=== PATIENT | female | born 1970 | race Caucasian/White ===

== ENCOUNTER 2017-04-05 12:02 | Emergency (ER) | payer MEDICAID ==
[~2017-04-05] VITALS: Ht 165.1 cm; Wt 79.0 kg
[2017-04-05 12:03] VITALS: Ht 165.1 cm; Wt 79.0 kg
--- NOTE | 2017-04-05 12:41 | ERD ---
ER Documentation Chief Complaint Chief Complaint BACK PAIN X 1 DAY HPI The patient is a 47-year-old female, presenting to the ER because of left lower back pain that began last night, she has similar symptoms previously. The pain is worse with movement. She denies fever, chills, neck pain, chest pain, vomiting, dysuria, diarrhea. She does not smoke nor drink. She is awaiting to see a general surgeon for elective cholecystectomy after she was seen on March 28 2017 at [facility] Past medical history: Cholelithiasis, anemia, anxiety, GERD, insomnia Past surgical history: Bladder surgery ROS All systems reviewed and are negative except as per history of present illness. Medications Home Meds Active Scripts Tramadol HCl (Tramadol HCl) 50 Mg Tablet, 50 MG PO Q6, #10 TAB Prov:RADHA SUGGS MD 04/05/17 Tramadol HCl (Tramadol HCl) 50 Mg Tablet, 50 MG PO Q6 Y for PAIN, #10 TAB Prov:RADHA SUGGS MD 04/05/17 Tramadol HCl (Tramadol HCl) 50 Mg Tablet, 50 MG PO Q6, #10 TAB Prov:RADHA SUGGS MD 04/05/17 Physical Exam Vitals Vital Signs Date Time Temp Pulse Resp B/P Pulse Ox O2 Delivery O2 Flow Rate FiO2 04/05/17 12:03 98.5 77 18 136/72 100 Physical Exam Const: No acute distress. Head: Atraumatic. Eyes: Normal Conjunctiva. ENT: Normal External Ears, Nose and Mouth. Neck: Full range of motion. No meningismus. Resp: Clear to auscultation bilaterally. Cardio: Regular rate and rhythm. Abd: Soft, non distended, normal bowel sounds, non tender. Skin: No petechiae or rashes. Back: No midline or flank tenderness. Ext: No cyanosis, or edema. Neur: Awake and alert. No focal deficit Psych: Normal Mood and Affect. Results 24 hrs Laboratory Tests Test 04/05/17 13:10 Bedside Urine pH (LAB) 6.0 Bedside Urine Protein (LAB) Negative Bedside Urine Glucose (UA) Negative Bedside Urine Ketones (LAB) Negative Bedside Urine Blood Trace-lysed Bedside Urine Nitrite (LAB) Negative Bedside Urine Leukocyte Esterase (L Negative Current Medications Medications (Trade) Dose Ordered Sig/Odilon Route PRN Reason Start Time Stop Time Status Last Admin Dose Admin Acetaminophen/ Hydrocodone Bitart ([place] (5/325)) 1 tab ONCE ONCE PO 04/05/17 13:00 04/05/17 13:01 DC 04/05/17 12:59 Ondansetron HCl (Zofran Odt) 4 mg ONCE STAT ODT 04/05/17 12:53 04/05/17 12:54 DC 04/05/17 12:59 Procedures/MDM MEDICAL MAKING DECISION: The patient is a 46-year-old female, presenting with acute low back pain. She was treated with [place] 5 mg p.o. and Zofran ODT for pain and nausea with good response. The differential diagnoses considered include but are not limited to caudal equina syndrome, spinal abscess, DJD, diskitis, lumbar radiculopathy. Departure Diagnosis: Primary Impression: Back pain Condition: Good Comments She was discharged with Ultram The patient's blood pressure was elevated (>120/80) but appears stable without evidence of hypertension emergency or urgency. The patient was counseled about the risks of hypertension and urged to pursue outpatient monitoring and therapy within a week with their primary care physician. I discussed the findings with the patient. I advised the patient to follow-up with the primary physician in about 1-2 days, sooner if needed and return if any concern. Disclaimer: Inadvertent spelling and grammatical errors are likely due to EHR/ dictation software use and do not reflect on the overall quality of patient care. Also, please note that the electronic time recorded on this note does not necessarily reflect the actual time of the patient encounter. RADHA SUGGS MD Apr 05, 2017 12:41
[2017-04-05] MEDS ORDERED: ONDANSETRON (ODT) 4 MG TAB ODT STA (12:53)
[2017-04-05] MEDS ORDERED: HYDROCODONE/APAP (5/325) TAB PO ONE (13:00)
[2017-04-05 13:10] LABS: URINE BLOOD (Dip) POC Trace-lysed (NEGATIVE)
[2017-04-05] MEDS ORDERED: TRAM50TA2 PO ×3 (14:17→14:44)
== END 2017-04-05 14:48 | disposition home or self-care (01) ==
LOC: FTE 12:02
DX: M54.5 Low back pain (principal)
CPT/HCPCS: 81003; Z7502; Z7610; 99283

== ENCOUNTER 2017-04-11 07:25 | Day surgery (SDC) | payer BC ==
[2017-04-11] VITALS (13 sets, daily range): BP systolic 123–147; BP diastolic 65–87; PULSE 89–108; RESP 15–20; Ht 165.1 cm; Wt 77.7 kg
[~2017-04-11] VITALS: Ht 165.1 cm; Wt 77.7 kg
[~2017-04-11 07:25] MED LIST: CEFAZOLIN 2 GM/50 ML (PMX) 50 ML IVPB SCH; SOD CHLORIDE 0.9% 1,000 ML IV SCH; TRAM50TA2 PO
[2017-04-11] MEDS ORDERED: PANT40TA3 PO (07:58)
[2017-04-11] MEDS ORDERED: BUPIVACAINE 0.25% (MPF) 30 ML INJ ONE (10:01)
[2017-04-11] MEDS ORDERED: PROPOFOL 20 ML ONE (10:11)
[2017-04-11] MEDS ORDERED: LIDOCAINE 1% (MDV) 20 ML INJ ONE (10:11)
[2017-04-11] MEDS ORDERED: MIDAZOLAM 1 MG/ML 2 ML INJ ONE (10:11)
[2017-04-11] MEDS ORDERED: ROCURONIUM 50 MG INJ ONE (10:11)
[2017-04-11] MEDS ORDERED: FENTAnyl 50 MCG/ML VIAL ONE ×2 (10:11→11:33)
[2017-04-11] MEDS ORDERED: FAMOTIDINE 20 MG INJ ONE (10:21)
[2017-04-11] MEDS ORDERED: ONDANSETRON 4 MG INJ ONE (10:21)
[2017-04-11] MEDS ORDERED: METOCLOPRAMIDE 10 MG INJ ONE ×2 (10:21→11:34)
[2017-04-11] MEDS ORDERED: CEFAZOLIN 1 GM INJ ONE (10:21)
[2017-04-11] MEDS ORDERED: DEXAMETHASONE 4 MG/ML 1 ML INJ ONE (10:21)
[2017-04-11] MEDS ORDERED: EPHEDrine SULFATE 50 MG/5 ML SYG ONE (10:38)
[2017-04-11] MEDS ORDERED: ROPIVACAINE 0.2% 20 ML VIAL ONE (10:50)
[2017-04-11] MEDS ORDERED: SUGAMMADEX SODIUM 200 MG/2 ML VIAL IV ONE (10:58)
[2017-04-11] MEDS ORDERED: HYDROCODONE/APAP (5/325) TAB PO ONE (11:00)
--- NOTE | 2017-04-11 11:03 | OPR ---
Date/Time of Note Date/Time of Note DATE: 04/11/17 TIME: 10:56 Operative Report Procedure Date: Apr 11, 2017 Preoperative Diagnosis symptomatic gallstones Postoperative Diagnosis same Operation/Procedure Performed 1. laparoscopic cholecystectomy 2. therapeutic injection of subcutaneous local anesthesia Surgeon see signature line Wreath Machine Tender none Anesthesia Type: general Estimated Blood Loss: 0 - 10 ml's Transfusion none Specimen gallbladder Grafts/Implants none Complications none Pt Condition Post Procedure: stable Indications This is a 47-year-old female with symptoms and gallstones. She requests surgical excision of her gallbladder. Risks alternatives benefits percent were discussed the patient. Patient expresses understanding consents to the operation. Procedure Description Patient is taken to the OR and prepped and draped in usual sterile fashion. Surgical timeout was performed. IV antibiotics given. Midline incision was made supraumbilical with a 15 blade. Dissection Carrs carried onto the fascia. 0 Vicryl stay sutures were placed on each side of the median. The fascia was opened and a balloon Beckwith trocar is introduced. Pneumoperitoneum is established. Midepigastric 12 mm optical trocar was placed under direct visualization right upper quadrant upper flank 5 mm optical trocar is placed under direct visualization. Upon initial inspection there are some adhesions to the gallbladder which were taken down bluntly. The bladder was grasped and retracted in a lateral and our direction. Careful dissection with the cautery was performed laterally to allow mobilization visualization of the cystic duct and cystic artery. The critical view was established. The cystic duct was divided using 3 clips proximal due to thickened tissue distally was divided with a 35 mm echelon vascular stapler cystic artery was divided with 3 clips proximal and clip distal to the gallbladder was taken of the gallbladder bed. There is good hemostasis. The gallbladder was retrieved using Endo Catch bag. Ports removed under direct visualization 0 Vicryl U stitch was tied down skin was closed with interrupted and running 4-0 Monocryl. Therapeutic contains local anesthesia was injected throughout the incision site. Dressings were applied. Laura TRAN Apr 11, 2017 11:03
[2017-04-11] MEDS ORDERED: FENTAnyl 50 MCG/ML VIAL IV ONE (11:30)
[2017-04-11] MEDS ORDERED: METOCLOPRAMIDE 10 MG INJ IV PRN (11:30)
[2017-04-11] MEDS ORDERED: MEPERIDINE 25 MG INJ IV PRN (11:30)
== END 2017-04-11 12:55 | disposition home or self-care (01) ==
LOC: SDS 07:25
PROVIDERS: ATTEND Surgery
DX: K80.20 Calculus of gallbladder without cholecystitis without obstruction (principal)
CPT/HCPCS: 47562; J0690; J1100; J2250; J2405; J2765; J2795; J3010; Z7610